=== PATIENT | male | born 1985 | race Caucasian/White ===

== ENCOUNTER 2018-10-25 12:28 | Emergency (ER) | payer OTHER ==
[2018-10-25 12:48] VITALS: BP 123/87; PULSE 72; TEMP 97.6
== END 2018-10-25 13:10 | disposition home or self-care (01) ==
LOC: COL.ER 12:28
DX: S01.412D Laceration without foreign body of left cheek and temporomandibular area, subsequent encounter (principal); X58.XXXD Exposure to other specified factors, subsequent encounter